=== PATIENT | male | born 1970 | race Caucasian/White ===

== ENCOUNTER → 2023-06-19 15:50 | Outpatient (CLI) | payer BC, SELFPAY ==
--- NOTE | 2023-06-19 15:45 | DI.RAD_ITS ---
Exam(s) XR THUMB LT EXAM: XR THUMB LT CLINICAL HISTORY: PAIN IN LEFT FINGERS-[id number]. TECHNIQUE: 2D digital imaging was performed. Three views. COMPARISON: None. FINDINGS: BONES: Fracture at the dorsal plate of the distal phalanx of the with separation of the fracture frag ment 3-4 millimeters. No additional fractures. No bony destructive lesion is seen. JOINTS: No dislocation present. No significant degenerative changes. SOFT TISSUE: Normal. IMPRESSION: Displaced fracture fragment at the dorsum of the distal phalanx of the thumb. DATA REPOSITORY: RADIATION DOSE DELIVERED:
== END ==
PROVIDERS: Visit Provider Nurse Practitioner Family
DX: S62.522A Displaced fracture of distal phalanx of left thumb, initial encounter for closed fracture (principal); X58.XXXA Exposure to other specified factors, initial encounter
CPT/HCPCS: 73140